=== PATIENT | male | born 1950 | race Hispanic/Latino ===

== ENCOUNTER 2022-10-24 08:51 | Inpatient (IN) | payer MEDICARE ==
[2022-10-23 12:42] LABS: BASOPHILS % 0.5 % (0.0-1.0); EOSINOPHILS # (AUTO) 0.1 (0.0-0.4); EOSINOPHILS % 1.7 % (0.0-6.0); HEMATOCRIT 37.7 % (38.2-49.6); HEMOGLOBIN 13.1 g/dL (14.0-18.0); LYMPHOCYTES # (AUTO) 1.8 (1.0-3.2); LYMPHOCYTES % 24.4 % (18.0-39.1); MEAN CORPUSCULAR HEMOGLOBIN 32.1 pg (28-32); MEAN CORPUSCULAR HGB CONC 34.7 g/dL (31-35); MEAN CORPUSCULAR VOLUME 92.4 fL (81-99); MONOCYTES # (AUTO) 0.5 (0.2-0.8); MONOCYTES % 6.6 % (4.4-11.3); NEUTROPHILS % 66.4 % (38.7-80.0); PLATELET COUNT 266 x10e3/uL (140-360); RED BLOOD COUNT 4.08 x10e6/uL (4.3-5.7); RED CELL DISTRIBUTION WIDTH 12.6 % (11.7-14.4)
[2022-10-23 13:04] LABS: ANION GAP 13.1 mmol/L (8-16); CALCIUM 9.8 mg/dL (8.4-10.2); CREATININE, SERUM 0.85 mg/dL (0.72-1.25); POTASSIUM 4.1 mmol/L (3.5-5.1)
[2022-10-24] VITALS (8 sets, daily range): BP systolic 152–163; BP diastolic 66–88; PULSE 68–85; RESP 16–21; TEMP 96.6–97.6; O2SAT 95–100
[~2022-10-24] VITALS: Ht 157.5 cm; Wt 81.6 kg
[~2022-10-24 08:51] MED LIST: ACETAMINOPHEN 1000 MG/100 ML 100 ML IV ONE; ALEVE220 M1 PO
[2022-10-24] MEDS ORDERED: CEFTRIAXONE 1 GM VIAL ONE (09:05)
[2022-10-24] MEDS ORDERED: LACTATED RINGER'S 1,000 ML ONE (09:05)
[2022-10-24] MEDS ORDERED: GENTAMICIN 80MG/NS 100 ML 200 ML IV ONE (09:05)
[2022-10-24] MEDS ORDERED: DEXAMETHASONE SOD PHOS INJ 4 MG/ML SDV ONE (11:59)
[2022-10-24] MEDS ORDERED: LIDOCAINE HCL 2% LOCAL INJ 5 ML SDV VIAL INJ ONE (11:59)
[2022-10-24] MEDS ORDERED: POVIDONE IODINE 0.05% 0.05 % ML PO ONE (11:59)
[2022-10-24] MEDS ORDERED: ONDANSETRON HCL INJ 2MG/ML 2ML 2 MG/ML VIAL ONE (11:59)
[2022-10-24] MEDS ORDERED: PROPOFOL IV EMULSION 10 MG/ML 20 ML VIAL ONE (11:59)
[2022-10-24] MEDS ORDERED: SEVOFLURANE INHAL SOLN 250 ML PEN BTL ONE (11:59)
[2022-10-24] MEDS ORDERED: IOPAMIDOL 610MG/1ML 300 MG/ML VIAL IV ONE (12:07)
[2022-10-24] MEDS ORDERED: FENTANYL CITRATE/PF 100MCG/2 ML INJ ONE ×2 (12:52→14:05)
[2022-10-24] MEDS ORDERED: ONDANSETRON HCL INJ 2MG/ML 2ML 2 MG/ML VIAL IV PRN (13:45)
[2022-10-24] MEDS ORDERED: PHENAZOPYRIDINE HCL 100 MG TAB PO PRN (13:45)
[2022-10-24] MEDS ORDERED: DIPHENHYDRAMINE HCL 25 MG CAP PO PRN (13:45)
[2022-10-24] MEDS ORDERED: ACETAMINOPHEN/CODEINE 300MG - 30MG TAB PO PRN (13:45)
[2022-10-24 14:24] LABS: BASOPHILS # (AUTO) 0.1 (0.0-0.1); BASOPHILS % 0.4 % (0.0-1.0); EOSINOPHILS # (AUTO) 0.1 (0.0-0.4); EOSINOPHILS % 0.7 % (0.0-6.0); HEMATOCRIT 35.9 % (38.2-49.6); HEMOGLOBIN 12.1 g/dL (14.0-18.0); LYMPHOCYTES # (AUTO) 1.7 (1.0-3.2); LYMPHOCYTES % 13.4 % (18.0-39.1); MEAN CORPUSCULAR HEMOGLOBIN 32.6 pg (28-32); MEAN CORPUSCULAR HGB CONC 33.7 g/dL (31-35); MEAN CORPUSCULAR VOLUME 96.8 fL (81-99); MONOCYTES # (AUTO) 0.4 (0.2-0.8); MONOCYTES % 2.9 % (4.4-11.3); NEUTROPHILS # (AUTO) 10.1 (2.1-6.9); PLATELET COUNT 262 x10e3/uL (140-360); RED BLOOD COUNT 3.71 x10e6/uL (4.3-5.7); RED CELL DISTRIBUTION WIDTH 12.6 % (11.7-14.4)
[2022-10-24 14:38] LABS: CALCIUM 8.2 mg/dL (8.4-10.2); CREATININE, SERUM 0.84 mg/dL (0.72-1.25)
[2022-10-24] MEDS: SODIUM CHLORIDE 0.9% 1000ML 1,000 ML IV SCH (16:10)
[2022-10-24] MEDS: DOCUSATE SODIUM 100 MG CAP PO SCH (16:10)
[2022-10-24] MEDS ORDERED: ACETAMINOPHEN 1000 MG/100 ML IV PRN (18:00)
[2022-10-25] VITALS (10 sets, daily range): BP systolic 139–167; BP diastolic 62–81; PULSE 59–81; RESP 16–20; TEMP 96.7–98.1; O2SAT 96–100
[2022-10-25] MEDS: SODIUM CHLORIDE 0.9% 1000ML 1,000 ML IV SCH ×2 (03:55→16:47)
[2022-10-25 05:09] LABS: BASOPHILS % 0.1 % (0.0-1.0); HEMATOCRIT 37.8 % (38.2-49.6); LYMPHOCYTES # (AUTO) 1.2 (1.0-3.2); LYMPHOCYTES % 9.7 % (18.0-39.1); MEAN CORPUSCULAR HEMOGLOBIN 32.4 pg (28-32); MEAN CORPUSCULAR HGB CONC 34.4 g/dL (31-35); MEAN CORPUSCULAR VOLUME 94.3 fL (81-99); MONOCYTES # (AUTO) 0.6 (0.2-0.8); MONOCYTES % 4.9 % (4.4-11.3); NEUTROPHILS # (AUTO) 10.6 (2.1-6.9); NEUTROPHILS % 85.1 % (38.7-80.0); PLATELET COUNT 250 x10e3/uL (140-360); RED BLOOD COUNT 4.01 x10e6/uL (4.3-5.7); RED CELL DISTRIBUTION WIDTH 12.4 % (11.7-14.4)
[2022-10-25 05:27] LABS: ANION GAP 12.3 mmol/L (8-16); CALCIUM 8.3 mg/dL (8.4-10.2); CREATININE, SERUM 0.8 mg/dL (0.72-1.25); POTASSIUM 4.3 mmol/L (3.5-5.1)
[2022-10-25] MEDS ORDERED: LISINOPRIL5 MG PO (08:23)
[2022-10-25] MEDS ORDERED: METFORMIN HCL500 MG PO (08:23)
[2022-10-25] MEDS: DOCUSATE SODIUM 100 MG CAP PO SCH ×2 (08:28→16:47)
[2022-10-25 08:47] LABS: CHOL/HDL RATIO 3.6 (3.9-4.7)
[2022-10-25] MEDS ORDERED: ONDANSETRON HCL 4 MG ORAL DISINTEGRATING TAB PO PRN (13:45)
[2022-10-26 01:11] VITALS: BP 130/58; PULSE 74; RESP 16; TEMP 97.5; O2SAT 100
[2022-10-26] MEDS: SODIUM CHLORIDE 0.9% 1000ML 1,000 ML IV SCH (05:12)
[2022-10-26 05:15] LABS: BASOPHILS % 0.2 % (0.0-1.0); EOSINOPHILS % 0.3 % (0.0-6.0); HEMATOCRIT 36.3 % (38.2-49.6); HEMOGLOBIN 12.5 g/dL (14.0-18.0); LYMPHOCYTES # (AUTO) 1.9 (1.0-3.2); LYMPHOCYTES % 19.2 % (18.0-39.1); MEAN CORPUSCULAR HEMOGLOBIN 32.4 pg (28-32); MEAN CORPUSCULAR HGB CONC 34.4 g/dL (31-35); MONOCYTES # (AUTO) 0.7 (0.2-0.8); MONOCYTES % 7.2 % (4.4-11.3); NEUTROPHILS # (AUTO) 7.1 (2.1-6.9); NEUTROPHILS % 72.8 % (38.7-80.0); PLATELET COUNT 221 x10e3/uL (140-360); RED BLOOD COUNT 3.86 x10e6/uL (4.3-5.7); RED CELL DISTRIBUTION WIDTH 12.9 % (11.7-14.4)
[2022-10-26 05:27] VITALS: BP 128/56; PULSE 74; RESP 16; TEMP 98.7; O2SAT 96
[2022-10-26 05:37] LABS: ANION GAP 11.1 mmol/L (8-16); CREATININE, SERUM 0.77 mg/dL (0.72-1.25); POTASSIUM 4.1 mmol/L (3.5-5.1)
[2022-10-26 05:51] LABS: CALCIUM 8.7 mg/dL (8.4-10.2)
[2022-10-26 08:02] VITALS: BP 153/84; PULSE 79; RESP 20; TEMP 98.2; O2SAT 98
[2022-10-26] MEDS: DOCUSATE SODIUM 100 MG CAP PO SCH ×2 (09:08→16:26)
[2022-10-26 10:25] VITALS: PULSE 81; RESP 16; O2SAT 98
[2022-10-26 12:23] VITALS: BP 151/89; PULSE 91; RESP 19; TEMP 98; O2SAT 98
[2022-10-26 16:15] VITALS: BP 142/78; PULSE 75; RESP 21; TEMP 97.7; O2SAT 99
== END 2022-10-26 17:15 | disposition home or self-care (01) | DRG 713 ==
LOC: OR 08:51 → PACU V 13:02 → MED/SURG 14:39
PROVIDERS: ADMIT Internal Medicine; ATTEND Internal Medicine
PROC: BT141ZZ Fluoroscopy of Kidneys, Ureters and Bladder using Low Osmolar Contrast (ICD-10-PCS; 2022-10-24)
PROC: 0T788ZZ Dilation of Bilateral Ureters, Via Natural or Artificial Opening Endoscopic (ICD-10-PCS; 2022-10-24)
PROC: 0T7D8ZZ Dilation of Urethra, Via Natural or Artificial Opening Endoscopic (ICD-10-PCS; principal; 2022-10-24 12:07)
PROC: 0VB08ZZ Excision of Prostate, Via Natural or Artificial Opening Endoscopic (ICD-10-PCS; 2022-10-24 12:07)
DX: N40.1 Benign prostatic hyperplasia with lower urinary tract symptoms (principal); N13.8 Other obstructive and reflux uropathy; R33.9 Retention of urine, unspecified; E66.01 Morbid (severe) obesity due to excess calories; C61 Malignant neoplasm of prostate; Z20.822 Contact with and (suspected) exposure to COVID-19
CPT/HCPCS: 0223U; 36415; 71046; 74420; 80048; 80061; 83036; 83735; 85025; 88304; 88305; 93005; 94799; C1758; J0696; J1100; J1580; J2001; J2405; J7030

== ENCOUNTER 2024-06-24 06:59 | Emergency (ER) | payer MEDICARE ==
[~2024-06-24] VITALS: Ht 157.5 cm; Wt 72.6 kg
[~2024-06-24 06:59] MED LIST changes: -ACETAMINOPHEN 1000 MG/100 ML 100 ML IV ONE; +LISINOPRIL5 MG PO; +METFORMIN HCL500 MG PO
[2024-06-24] MEDS ORDERED: BACTRIM DS TAB1 EACH PO (08:08)
[2024-06-24] MEDS: TRIMETHOPRIM/SULFAMETHOXAZOLE 160-800 MG TAB PO ONE (08:26)
[2024-06-24] MEDS: CEFTRIAXONE 1 GM VIAL IM ONE (08:26)
[2024-06-24 08:33] VITALS: PULSE 90; RESP 18; TEMP 97.2; O2SAT 99
== END 2024-06-24 08:38 | disposition home or self-care (01) ==
LOC: FSED 07:16
DX: R35.0 Frequency of micturition (principal); N39.0 Urinary tract infection, site not specified; R53.1 Weakness; I10 Essential (primary) hypertension; R73.03 Prediabetes
CPT/HCPCS: 81003; 87086; 87186; 96372; 99283; J0696